=== PATIENT | female | born 1960 | race African-American/Black ===

== ENCOUNTER 2019-10-17 00:11 | Outpatient (CLI) | payer BC, SELFPAY ==
[2019-10-17 17:56] LABS: SARS-CoV-2 RNA PCR Negative
== END 2019-10-17 00:12 | disposition home or self-care (01) ==
LOC: ANHCOVIDDT 00:12
PROVIDERS: Visit Provider Internal Medicine Gastroenterology
DX: Z01.818 Encounter for other preprocedural examination (principal); Z11.59 Encounter for screening for other viral diseases
CPT/HCPCS: 87635; C9803; U0003

== ENCOUNTER 2019-10-19 01:52 | Day surgery (SDC) | payer BC, SELFPAY ==
[2019-10-10 12:05] VITALS: BMI 60.4
[2019-10-19 06:42] LABS: Glucose Point of Care 164 (65-105)
[2019-10-19 06:45] VITALS: BP 142/97; PULSE 65; RESP 18; TEMP 36.4; O2SAT 94
[2019-10-19] MEDS: LACTATED RINGERS 1,000 ML 150 ML IV CONT (07:15)
--- NOTE | 2019-10-19 07:26 | WPDANESEPPF ---
Anes - Initial Pre Proc Eval Procedure: Operation Date: 10/19/19 07:30 Proposed Procedures p Screening Colonoscopy - Shiv Delcid DO Date/Time: 10/19/19 07:26 Surgeon: Shiv Delcid DO Pre Op Diagnosis: Hx Of Colon Polyps Patient Data Age: 59 Gender: F Height: 5 ft 1 in Weight: 142.8 kg Last Vital Signs Temp 97.6 F 10/19/19 06:45 Pulse 65 10/19/19 06:45 Resp 18 10/19/19 06:45 BP 142/97 H 10/19/19 06:45 Pulse Ox 94 10/19/19 06:45 Allergies Allergy/AdvReac Type Severity Reaction Status Date / Time Penicillins Allergy Intermediate HIVES Verified 10/19/19 06:43 nickel Allergy Mild Rash Verified 10/19/19 06:43 Sulfa (Sulfonamide AdvReac Intermediate NAUSEA Verified 10/19/19 06:43 Antibiotics) VOMITING Home Medications Medication Instructions Recorded Confirmed Type ergocalciferol (vitamin D2) 1,250 mcg PO WEEKLY 10/10/19 10/19/19 History metformin 1,000 mg PO BID 10/10/19 10/19/19 History ramipril 5 mg PO DAILY 10/10/19 10/19/19 History rosuvastatin 10 mg PO DAILY 10/10/19 10/19/19 History Laboratory Tests 10/19/19 06:39 POC Capillary Glucose 164 mg/dl H mg/dl (65-105) Patient hx anesthesia problems: none Family hx anesthesia problems: none [facility] Past Medical History Medical History (Updated 10/19/19 @ 07:26 by Goyo Miles MD) Diabetes Hyperlipidemia Hypertension Super obesity Anes - Eval Final PreProcedure Day of Procedure 10/19/19 07:26 Patient weight: super morbidly obese Heart: regular rate and rhythm Lungs: clear to auscultation Airway: Mallampati scale class II Neurological: alert and oriented Last oral intake: >/= 8 hours ASA classification: IV Emergent: no Anesthetic plan: proceed Anesthesia type and monitoring: general and standard monitoring Informed Consent: The patient's anesthetic plan and its attendant risks and benefits were discussed with the patient/family/POA. Questions were solicited and answers provided to the satisfaction of the patient/family/POA.
--- NOTE | 2019-10-19 07:38 | PM.IMHP ---
H&P: HPI History of Present Illness Chief complaint: Hx Of Colon Polyps Narrative: Reason for visit colonoscopy. Impression: Screening and surveillance colonoscopy. The patient has history of colon polyps. Diabetes mellitus. Hypertension. Hyperlipidemia. Obesity. Suspected sleep apnea. Recommendation: Colonoscopy. History: This very pleasant lady's here for screening and surveillance colonoscopy. She has history colon polyps. Her GI review systems negative. The patient does complain of some snoring. She sleeps upright in a chair because of chronic back problems. Physical examination: General: very pleasant patient in no acute distress. HEENT: Head was normocephalic sclerae is clear mouth without masses neck was supple. Heart: Rate rhythm regular without S3 or S4. Lungs: CTA. Abdomen: Soft with no guarding or rigidity. Bowel sounds were active. Neurologic: Cranial nerves 2 through 12 intact. No focal defects. No clonus. Musculoskeletal system: Revealed no joint tenderness or swelling no muscle atrophy. Extremities: Reveal no significant edema. Skin: Warm and dry with normal turgor. Mental status: intact. Patient is alert and oriented. Review of Systems Review of Systems: All systems reviewed & are unremarkable except as noted in HPI and below PMFSH Past Medical History Medical History (Updated 10/19/19 @ 07:33 by Shiv Delcid DO) Colon polyp Diabetes Hyperlipidemia Hypertension Super obesity Surgical History Surgical History (Updated 10/19/19 @ 07:38 by Shiv Delcid DO) H/O colonoscopy H/O foot surgery H/O toe surgery H/O: hysterectomy Hx laparoscopic cholecystectomy Hx of cataract surgery Meds Home Medications and Allergies Home Medications Medication Instructions Recorded Confirmed Type ergocalciferol (vitamin D2) 1,250 mcg PO WEEKLY 10/10/19 10/19/19 History metformin 1,000 mg PO BID 10/10/19 10/19/19 History ramipril 5 mg PO DAILY 10/10/19 10/19/19 History rosuvastatin 10 mg PO DAILY 10/10/19 10/19/19 History Allergies Allergy/AdvReac Type Severity Reaction Status Date / Time Penicillins Allergy Intermediate HIVES Verified 10/19/19 06:43 nickel Allergy Mild Rash Verified 10/19/19 06:43 Sulfa (Sulfonamide AdvReac Intermediate NAUSEA Verified 10/19/19 06:43 Antibiotics) VOMITING Vital Signs Vital Signs - 24 hr 10/19/19 06:45 Temperature 36.4 C Pulse Rate 65 Respiratory Rate 18 Blood Pressure 142/97 H Pulse Oximetry 94
[2019-10-19 08:10] VITALS: BP 106/70; PULSE 71; RESP 19; O2SAT 99
[2019-10-19 08:20] VITALS: BP 134/104; PULSE 74; RESP 22; O2SAT 97
[2019-10-19 08:30] VITALS: BP 144/90; PULSE 67; RESP 25; O2SAT 97
== END 2019-10-19 08:45 | disposition home or self-care (01) ==
PROVIDERS: PCP Internal Medicine; Visit Provider Internal Medicine Gastroenterology
PROC: 0DJD8ZZ Inspection of Lower Intestinal Tract, Via Natural or Artificial Opening Endoscopic (ICD-10-PCS; CPT 45378; principal; 2019-10-19 07:30)
DX: Z12.11 Encounter for screening for malignant neoplasm of colon (principal); K52.9 Noninfective gastroenteritis and colitis, unspecified; K57.30 Diverticulosis of large intestine without perforation or abscess without bleeding; K64.8 Other hemorrhoids; E66.01 Morbid (severe) obesity due to excess calories; Z68.43 Body mass index [BMI] 50.0-59.9, adult
CPT/HCPCS: 45380; 88305; J2704; J7120

== ENCOUNTER → 2020-01-22 10:08 | Outpatient (CLI) | payer OTHER, SELFPAY ==
--- NOTE | ~2020-01-22 | MM_ITS ---
EXAMINATION: MM screening [facility] BI w ericka HISTORY: Screening TECHNIQUE: Craniocaudal and mediolateral oblique 3-D tomosynthesis images were obtained and synthetic 2-D images were generated. CAD analysis was submitted and interpreted. COMPARISON: Comparison to multiple prior studies sequentially, with oldest reviewed study dated 12/22. BREAST PARENCHYMAL COMPOSITION: There are scattered areas of fibroglandular density. FINDINGS: There are developing bilateral breast asymmetries. There are no suspicious calcifications. IMPRESSION: 1. Focal bilateral breast asymmetries. 2. Additional mammographic views and possible breast ultrasound are recommended. BI-RADS Category 0: Incomplete: Needs additional imaging evaluation. Reviewed, dictated and finalized at location A. UNTING ADMINISTRATIVE ASSISTANT IMPRESSION: 1. Focal bilateral breast asymmetries. 2. Additional mammographic views and possible breast ultrasound are recommended . BI-RADS Category 0: Incomplete: Needs additional imaging evaluation.
== END ==
PROVIDERS: PCP Internal Medicine; Visit Provider Obstetrics & Gynecology Gynecology
DX: Z12.31 Encounter for screening mammogram for malignant neoplasm of breast (principal); R92.8 Other abnormal and inconclusive findings on diagnostic imaging of breast
CPT/HCPCS: 77063; 77067

== ENCOUNTER → 2020-02-13 08:17 | Outpatient (CLI) | payer OTHER, SELFPAY ==
--- NOTE | ~2020-02-13 | MMUS_ITS ---
EXAMINATION: MM diagnostic mammo BI, US breast BI limited HISTORY: Focal bilateral breast asymmetries reported on 01/22/2020 screening mammogram examination TECHNIQUE: Additional 3-D tomosynthesis images of both breasts were performed and synthetic 2-D image s were generated. CAD analysis was submitted and interpreted. High resolution bilateral lower inner q uadrant breast ultrasound breast ultrasound was performed. COMPARISON: 01/22/2020, 01/09/2019, bilateral digital screening mammogram examinations FINDINGS: MAMMOGRAPHIC FINDINGS: Focal low-density up to 1.5- 2 centimeter mammographic opacities are noted in the lower inner quadra nt of each breast. These are likely benign. Bilateral lower inner quadrant breast ultrasound examinat ion was performed. ULTRASOUND: There is no evidence of focal abnormal solid or cystic lesion in the lower inner quadrants of either breast. IMPRESSION: 1. No mammographic evidence of malignancy 2. Routine mammographic screening is recommended. BI-RADS Category 2: Benign finding(s). Reviewed, dictated and finalized at location A. CTOR REHABILITATION PROGRAM IMPRESSION: 1. No mammographic evidence of malignancy 2. Routine mammographic screening is recommended. BI-RADS Category 2: Benign finding(s).
== END ==
PROVIDERS: Visit Provider Obstetrics & Gynecology Gynecology
DX: R92.8 Other abnormal and inconclusive findings on diagnostic imaging of breast (principal)
CPT/HCPCS: 76642; 77066

== ENCOUNTER → 2020-04-01 10:27 | Outpatient (CLI) | payer OTHER, SELFPAY ==
--- NOTE | ~2020-04-01 | DEXA_ITS ---
Bone Density Report Name: Ismael Cha Age: 59 Sex: Female Ethnicity: Black Date of : 1960 Indication: postmenopausal; screening for osteoporosis; Referring Provider: SOLANGE WONG Study: Bone densitometry was performed. Exam Date: April 01, 2020 Accession number: [id number] Bone Density: Region BMD T-score Z-score Classification AP Spine (L1, L2, L3) 0.959 -0.5 0.1 Normal Femoral Neck (Left) 0.901 0.5 0.7 Normal Total Hip (Left) 1.190 2.0 1.8 Normal Femoral Neck (Right) 0.878 0.3 0.6 Normal Total Hip (Right) 1.107 1.4 1.3 Normal Total Hip Mean 1.149 1.7 1.6 Normal World Health Organization criteria for BMD impression classify patients as: Normal (T-score at or above -1.0), Osteopenia (T-score between -1.0 and -2.5), or Osteoporosis (T-score at or below -2.5). 10-year Fracture Risk: FRAX not reported because: All T-scores for Spine Total, Hip Total, Femoral Neck at or above -1.0 Previous Exams: Region Exam Age BMD T-score BMD Change BMD Change Date g/cm2 vs Baseline vs Previous AP Spine(L1, L2, L3) 04/01/2020 59 0.959 -0.5 0.009 -0.008 10/07/2016 56 0.967 -0.5 0.016 -0.063* 10/19/2012 52 1.030 0.1 0.079* 0.079* 10/03/2010 50 0.950 -0.6 Total Hip(Left) 04/01/2020 59 1.190 2.0 0.010 -0.032* 10/07/2016 56 1.222 2.3 0.042* -0.051* 10/19/2012 52 1.273 2.7 0.094* 0.094* 10/03/2010 50 1.180 1.9 Total Hip(Right) 04/01/2020 59 1.107 1.4 -0.110* -0.087* 10/07/2016 56 1.194 2.1 -0.023 -0.041* 10/19/2012 52 1.235 2.4 0.018 0.018 10/03/2010 50 1.217 2.3 *Denotes significance at 95% confidence level, LSC for AP Spine = 0.022 g/cm2, LSC for Total Hip = 0.027 g/cm2 Clinical Information Provided by Patient: Has used the following medications: Vitamin D Patient maximum height was 65.8 Menopause Age: 23 No regular weight bearing exercise Does not regularly consume dairy products Drinks caffeinated beverages Onset of menses at age 12 Number of children 3 Impression: The patient has normal bone mass. The BMD for the Total Hip(Left) decreased, changing by -0.032 since the last DXA exam. The BMD for the Total Hip(Right) decreased, changing by -0.087 since the last DXA exam. Discussion: BONE DENSITY IS ABOVE THE MINIM
== END ==
PROVIDERS: PCP Internal Medicine; Visit Provider Obstetrics & Gynecology Gynecology
DX: Z78.0 Asymptomatic menopausal state (principal)
CPT/HCPCS: 77080

== ENCOUNTER → 2021-03-11 11:20 | Outpatient (CLI) | payer OTHER, SELFPAY ==
--- NOTE | ~2021-03-11 | MM_ITS ---
EXAMINATION: MM screening [facility] BI w ericka HISTORY: Screening mammogram TECHNIQUE: Craniocaudal and mediolateral oblique 3-D tomosynthesis images were obtained and synthetic 2-D images were generated. CAD analysis was submitted and interpreted. COMPARISON: 02/13/2020, 01/22/2020, 01/19/2019, 11/13/2017 BREAST PARENCHYMAL COMPOSITION: The breasts are almost entirely fatty. FINDINGS: A stable asymmetry is noted in the right breast on the craniocaudal view. There is no evide nce of suspicious mass, calcification, or architectural distortion to suggest malignancy in either br east. There has been no suspicious interval change. IMPRESSION: 1. No mammographic evidence of malignancy. 2. Recommend routine screening mammography in one year. BI-RADS Category 2: Benign finding(s). Reviewed, dictated and finalized at location A. [employer]
== END ==
PROVIDERS: PCP Internal Medicine; Visit Provider Obstetrics & Gynecology Gynecology
DX: Z12.31 Encounter for screening mammogram for malignant neoplasm of breast (principal)
CPT/HCPCS: 77063; 77067

== ENCOUNTER → 2022-04-06 08:59 | Outpatient (CLI) | payer OTHER, SELFPAY ==
--- NOTE | ~2022-04-06 | MMUS_ITS ---
EXAMINATION: MM diagnostic [facility] BI w ericka, US breast LT limited HISTORY: Left breast pain TECHNIQUE: Craniocaudal, mediolateral, and mediolateral oblique 3-D tomosynthesis images of the breas ts were performed and synthetic 2-D images were generated. CAD analysis was submitted and interpreted . High resolution limited left breast ultrasound was performed. COMPARISON: 03/11/2021, 02/13/2020, 01/22/2020, 01/19/2019 BREAST PARENCHYMAL COMPOSITION: The breasts are almost entirely fatty. FINDINGS: MAMMOGRAPHIC FINDINGS: No suspicious mass, calcification, or architectural distortion are identified in either breast to sug gest malignancy. There has been no suspicious interval change. No mammographic correlate is identifie d for the reported left breast pain. ULTRASOUND: There is no evidence of focal abnormal solid or cystic mass in the vicinity of the reported left cady st pain. IMPRESSION: 1. No specific mammographic or sonographic correlate is identified for the patient's reported left br east pain. Further evaluation at this time should be based on clinical assessment. Continued follow-u p physical examination is recommended. 2. Recommend routine screening mammography in one year. BI-RADS Category 1: Negative Reviewed, dictated and finalized at location A. AGNETIST IMPRESSION: 1. No specific mammographic or sonographic correlate is identified for the ryan ent's reported left breast pain. Further evaluation at this time should be base d on clinical assessment. Continued follow-up physical examination is recommend ed. 2. Recommend routine screening mammography in one year. BI-RADS Category 1: Negative
== END ==
PROVIDERS: PCP Internal Medicine; Visit Provider Obstetrics & Gynecology Gynecology
DX: N64.4 Mastodynia (principal)
CPT/HCPCS: 76642; 77062; 77066; G0279

== ENCOUNTER → 2023-05-11 08:00 | Outpatient (CLI) | payer OTHER, SELFPAY ==
--- NOTE | ~2023-05-11 | MM_ITS ---
EXAMINATION: MM screening [facility] BI w ericka HISTORY: Screening TECHNIQUE: Craniocaudal and mediolateral oblique 3-D tomosynthesis images were obtained and synthetic 2-D images were generated. CAD analysis was submitted and interpreted. COMPARISON: Comparison to multiple prior studies sequentially, with oldest reviewed study dated 11/13. BREAST PARENCHYMAL COMPOSITION: Not Dense: Breast are almost entirely fatty. FINDINGS: There are small fat-containing lesions medially in both breasts, consistent with benign fat necrosis. There is no evidence of suspicious mass, calcification, or architectural distortion to sug gest malignancy in either breast. There has been no suspicious interval change. IMPRESSION: 1. No mammographic evidence of malignancy. 2. Recommend routine screening mammography in one year. BI-RADS Category 2: Benign finding(s). Reviewed, dictated and finalized at location A. ONNEL CONSULTANT
== END ==
PROVIDERS: PCP Obstetrics & Gynecology Gynecology; Visit Provider Obstetrics & Gynecology Gynecology
DX: Z12.31 Encounter for screening mammogram for malignant neoplasm of breast (principal)
CPT/HCPCS: 77063; 77067

== ENCOUNTER 2024-05-15 07:44 | Outpatient (CLI) | payer OTHER, SELFPAY ==
--- NOTE | ~2024-05-15 | MM_ITS ---
EXAMINATION: MM screening [facility] BI w ericka HISTORY: Screening mammogram TECHNIQUE: Craniocaudal and mediolateral oblique 3-D tomosynthesis images were obtained and synthetic 2-D images were generated. CAD analysis was submitted and interpreted. COMPARISON: 05/11/2023, 04/06/2022, 03/11/2021 BREAST PARENCHYMAL COMPOSITION:Not Dense. The breasts are almost entirely fatty FINDINGS: No suspicious mass, calcification, or architectural distortion are identified in either garrett ast to suggest malignancy. There has been no suspicious interval change. IMPRESSION: No mammographic evidence of malignancy. Recommend routine screening mammography in one year. BI-RADS Category 1: Negative Reviewed, dictated and finalized at location . ITY MANAGEMENT NURSE
== END 2024-05-15 07:45 | disposition home or self-care (01) ==
LOC: MICIMG 07:45
PROVIDERS: PCP Obstetrics & Gynecology Gynecology; Visit Provider Obstetrics & Gynecology Gynecology
DX: Z12.31 Encounter for screening mammogram for malignant neoplasm of breast (principal)
CPT/HCPCS: 77063; 77067